=== PATIENT | male | born 1985 | race Caucasian/White ===

== ENCOUNTER 2023-12-15 17:21 | Inpatient (IN) | payer OTHER, SELFPAY ==
[2023-12-15] VITALS (9 sets, daily range): BP systolic 101–118; BP diastolic 45–62
--- NOTE | 2023-12-15 13:31 | ED.GENMED ---
History of Present Illness
General
Chief Complaint: Bowel Problem
Source: patient
Exam Limitations: none
Time Seen by Provider: 12/15/23 12:52
Nursing documentation reviewed up to this point in time: agreed with
History of Present Illness
History of Present Illness:
38-year-old male from local [facility] he has been on contraband watch no BM for 3 days, he is on Suboxone, gabapentin, he is on oral antibiotic for sutured laceration on his right forearm from [facility] wrist went through a plate glass window
about a week ago she requested the sutures be removed, he has no pain no nausea no vomiting ate lunch and breakfast today
He is hungry, requesting a lunch tray,
He denies any ingestion of contraband
Past History
Past History
ED Past Medical History: Other (Chronic pain)
Social History
Tobacco: Non-smoker
Alcohol: None
Drug: None
Living: [facility]
Employment: Not employed
Review of Systems
Review of Systems
All Other Systems: Not applicable
Constitutional: Denies fever
Respiratory: Reports no symptoms
Cardiac: Reports no symptoms
ABD/GI: Reports constipated; Denies abdominal pain or diarrhea
: Reports no symptoms
Phy Exam
Physical Exam
Physical Exam:
Physical Exam
General: no apparent distress, not acutely ill
Neck: No jaundice
Lungs: no acute respiratory distress.
Abdomen: Soft nontender
Neuro: alert and oriented. no focal neurological deficits
Skin: no rash
Psychiatric: cooperative
Extremities: Sutured wound on the right forearm no signs of infection
Course
Orders/Labs/Results
Orders:
Orders
12/15/23 12:42
Abdominal Series [CR Obstruct Series W/pa Chest] Urgent
Comment:
Reason For Exam: contipated
12/15/23 14:19
Magnesium Citrate [Citroma] 300 ml PO ONCE ONE
12/15/23 14:45
CT Abd/pel Without Iv Or Oral Urgent
Comment:
Reason For Exam: FB rectu
12/15/23 Dinner
Clear Liquid
At Your Request: Full Participation
12/15/23 16:01
ColoRectal Surgery Consult Routine
Consulting Provider: Jean-Claude Deutsch
Was physician already notified: Yes
12/15/23 16:11
Complete Blood Count/With Diff Urgent
Comprehensive Metabolic Panel Urgent
12/15/23 16:35
Admit/Transfer Patient As Directed
Co-Sign Provider:
Level of Care: Inpatient admission
Assign to:: Telemetry
Physician / Group: Henri Baires
Diagnosis: FB in rectum
Reason for Telemetry: Arrhythmia
Date to Stop Telemetry: 12/18/23
Time to Stop Telemetry: 11:00
Reason for Hospitalization: FB in rectum
Expected length of stay greater than two midnights?: Yes
ELOS- Estimated Length of Stay in days: 2
I certify the patient meets the requirements for IP care: Yes
12/15/23 16:36
Code Status As Directed
Resuscitation Status: Full Code
12/15/23 18:16
0.9% Sodium Chloride 1000 ml [Nss] 1,000 ml IV 75 mls/hr
Acetaminophen [Tylenol] 650 mg PO Q4HPRN PRN
Bisacodyl [Dulcolax] 10 mg RECTAL [id number] PRN
Docusate W/Senna [Senokot-S] 1 tablet PO BIDPRN PRN
Ketorolac [Toradol] 10 mg IV Q6HPRN PRN
Ondansetron Injectable [Zofran] 4 mg IV Q6HPRN PRN
Polyethylene Glycol Powder [Miralax] 17 grams PO DAILYPRN PRN
12/15/23 18:16
Activity As Directed
Activity Level: Bedside Commode
Pneumatic Compression Sleeves As Directed
Type: Knee high
Vital Signs As Directed
Frequency: Per unit guidelines
DX Deep Vein Thrombosis Video Routine
12/16/23 06:05
Basic Metabolic Panel IN AM
Complete Blood Count/No Diff IN AM
PTT IN AM
Prothrombin Time IN AM
12/18/23 11:00
DC Protocol for Telemetry ONCE
Abnormal Lab Results
12/15/23
16:11
RBC 4.55 L 10^6/uL
(4.70-6.10)
MPV 11.9 H fL
(7.4-10.4)
Absolute Neuts (auto) 7.5 H 10^3/uL
(1.4-6.5)
Neutrophils % 76.7 H %
(42.2-75.2)
Lymphocytes % 13.3 L %
(20.5-51.1)
Glucose 111 H mg/dl
(70-99)
12/15/23 16:11
12/15/23 16:11
Vital Signs
Initial and Last Documented VS:
Initial Vital Signs
Pulse Resp BP Pulse Ox
81 18 101/62 99
12/15/23 12:30 12/15/23 12:30 12/15/23 12:30 12/15/23 12:30
Last Documented Vital Signs
Temp Pulse Resp BP Pulse Ox
98.4 F 88 16 128/77 97
12/17/23 12:55 12/17/23 12:55 12/17/23 12:55 12/17/23 12:55 12/17/23 12:55
Procedures
Other
Indication for procedure:: Suture removal
Procedure completed by: Briana
Consent form signed: No
Additional Procedure:
Approximately 7 nonabsorbable sutures removed from a healed wound on the right wrist
MDM/Problems Addressed
Differential Diagnosis Includes:
Constipation, ingested contraband, medication effect from Suboxone
MDM/Problems Addressed:
No bowel movement for few
Chronic conditions affecting care:
Chronic pain
Acute Exacerbation and/or Progression of Chronic Illness:
Chronic pain
*Radiology
Radiology exam reviewed: preliminary read by ED provider
*Pulse Oximetry
Patient hypoxic: no
*Critical Care Note
Total Time (30-74mins, 75-104mins- exclusive of procedures): Not Applicable
Update Note
Update Note:
X-ray noted will start on a bowel regimen, patient tolerated lunch here without difficulty, sutures removed without difficulty no signs of infection or wound dehiscence
Update note from radiology concern for foreign body in the rectosigmoid will get a CT scan patient updated
ED Attending Note
-
Portions of this chart may have been created with voice recognition software.� Occasional wrong word or��sound alike� substitutions may have occurred due to the inherent limitations of voice recognition software.
Discharge Plan
Departure
Patient Disposition: Admit
Date of Disposition: 12/15/23
Time of Disposition: 16:10
Admit to: Med/Surg
Presentation/result/management discussed w/ accepting MD/DO: Hospitalist
Condition: Good
Discharge Problem:
Foreign body in anus and rectum, initial encounter
Interventions
Interventions:
*Risk Screen - Suicide Last Done: 12/15/23 13:31
*General Assessment Last Done: 12/15/23 13:31
*Neglect/Abuse Screening Last Done: 12/15/23 13:31
*ED COVID-19 Vaccine History Last Done: 12/15/23 13:31
*Nursing Disposition Last Done: 12/15/23 18:05
DA-Qrhpan-Saicenlabi Assessment Last Done: 12/15/23 13:31
Discharge Date and Time
Discharge Date/Time: 12/15/23 18:08
--- NOTE | 2023-12-15 16:26 | HPS.HSE ---
Family Physician
-
Family Physician: Facility [facility]
Chief Complaint
-
Foreign body in rectum
History of Present Illness
Patient is a 31-year-old male with past medical history of opioid use on Suboxone therapy was brought from local [facility] after having difficulty passing stool. Patient is poor historian and not forthcoming with much information. Apparently patient
was brought in by correction staff today for concern of contraband. Patient had an abdominal x-ray showing a foreign body in rectum and was confirmed on CT abdomen pelvis.
Patient stated of having a plastic tube? placed 48 hours before and containing meth. Again patient not forthcoming with information. Denies of currently having any abdominal pain nausea or vomiting.
Patient have history of opioid use and has been on Suboxone for 2 to 3 years, patient has been getting this for drug rehab.
No active cardiopulmonary complaints.
Medical History
Past Medical History
Past Medical History: Reports Other
Additional Past Medical History:
opioid use on Suboxone therapy
Past Surgical History: Reports Other
Social History
Tobacco: Smoker
Alcohol: Occasional
Drug: Narcotics
Living: Assisted
Family History
Family History: Not pertinent
Allergies / Home Medications
Allergies reflects when Allergies were last updated in [facility].
Home Medications with original date entered in [facility]
Allergy/Medication List:
Allergies
Allergy/AdvReac Type Severity Reaction Status Date / Time
No Known Allergies Allergy Verified 12/15/23 12:38
Review of Systems
-
A 12 point ROS was completed and negative except as noted: Yes
Physical Exam
Vital Signs
Vital Signs
Pulse Resp BP Pulse Ox
71 18 115/56 99
12/15/23 16:15 12/15/23 12:30 12/15/23 16:00 12/15/23 16:15
Physical Exam
General: Well Developed, Well Nourished and No Apparent Distress
HEENT: NormoCephalic, Moist mucous membranes and Atraumatic
Respiratory: Clear
Cardiac: S1/S2 and Regular Rhythm; No Murmur or Rub
GI: Soft, Non Tender, Non Distended and Normal Bowel Sounds; No Organomegaly
Rectal: Deferred by Provider
Musculoskeletal: No Clubbing, No Cyanosis and No Edema
Skin: No Rash
Neuro: Nonfocal/grossly intact
Data Reviewed
-
CT Scan: Image Personally Visualized and interpreted, Discussed with Patient and Discussed with Family
Impression/Plan
-
CT a/p
1. Air-filled foreign body within the distal sigmoid colon which may represent a tampon or other air-filled device.
2. No significant acute abnormality identified in the abdomen or pelvis, within the limits of unenhanced CT, as described above.
3. Moderate diffuse colonic stool burden may reflect constipation.

1. Foreign body in rectum
-Containing meth per patient
-CT abdomen pelvis report as above. Personally images reviewed and no intra foreign body material visualized in my opinion as well.
-Nonetheless monitor for any signs of meth toxicity
-Maintain patient on clear liquid diet
-maintain IV fluid
-Oral pain medication
-Colorectal surgery involved in care and will plan to take patient to the OR tomorrow
2. History of opioid use on Suboxone therapy
-As pharmacy to confirm dosing
DVT prophylaxis -SCD
Full code
Total time spent : 76 mins
I personally saw and examined the patient.
I have reviewed all diagnostic interpretations and treatment plans as written.
Time includes patient management by me, time spent at the patients bedside, time to review lab and imaging results, discussing patient care, documentation in the medical record, and time spent with the family or caregiver and discussing care plan
with RN/Consultants.
[2023-12-15 16:29] LABS: % Basophils 0.8 % (0-2); % Eosinophils 2.3 % (0-6); % Immature Granulocytes 0.4 % (0-0.5); % Lymphocytes 13.3 % (20.5-51.1); % Monocytes 6.5 % (1.7-9.3); % Neutrophils 76.7 % (42.2-75.2); Absolute Basophils 0.1 10^3/uL (0-0.2); Absolute Eosinophils 0.2 10^3/uL (0-0.7); Absolute Lymphocytes 1.3 10^3/uL (1.2-3.4); Absolute Monocytes 0.6 10^3/uL (0.1-0.6); Absolute Neutrophils 7.5 10^3/uL (1.4-6.5); Hematocrit 41.6 % (39.0-52.0); Hemoglobin 13.9 g/dL (13.0-18.0); Mean Corp Hgb Conc. 33.4 g/dL (33.0-37.0); Mean Corpuscular Hgb 30.5 pg (27.0-31.0); Mean Corpuscular Volume 91.4 fL (80.0-94.0); Mean Platelet Volume 11.9 fL (7.4-10.4); Nucleated Red Blood Cells % 0 % (-); Platelet Count 294 10^3/uL (130-400); Red Blood Cell Count 4.55 10^6/uL (4.70-6.10); Red Cell Dist. Width 12.8 % (11.5-14.5); White Blood Cell Count 9.8 10^3/uL (4.8-10.8)
[2023-12-15 16:57] LABS: ALT (SGPT) 21 U/L (0-50); AST (SGOT) 26 U/L (17-59); Albumin 3.9 g/dl (3.5-5.0); Alkaline Phosphatase 76 U/L (38-126); Blood Urea Nitrogen 19 mg/dl (9-20); Calcium 9.5 mg/dl (8.4-10.2); Carbon Dioxide 27 mmol/L (22-30); Chloride 103 mmol/L (98-107); Glucose 111 mg/dl (70-99); Potassium 4.6 mmol/L (3.5-5.1); Sodium 138 mmol/L (135-145); Total Bilirubin 0.3 mg/dl (0.2-1.3); Total Protein 6.7 g/dl (6.3-8.2); eGFR > 60.00
[2023-12-15] MEDS: NSS 1000 IV (18:38)
[2023-12-15] MEDS: SEROQUEL 50 MG PO (21:25)
[2023-12-16 02:44] VITALS: BP 112/55
[2023-12-16 07:00] VITALS: BP 113/68
[2023-12-16 07:00] LABS: Hematocrit 38.1 % (39.0-52.0); Mean Corp Hgb Conc. 34.1 g/dL (33.0-37.0); Mean Corpuscular Hgb 30.7 pg (27.0-31.0); Mean Corpuscular Volume 89.9 fL (80.0-94.0); Red Blood Cell Count 4.24 10^6/uL (4.70-6.10); Red Cell Dist. Width 12.7 % (11.5-14.5); White Blood Cell Count 7.7 10^3/uL (4.8-10.8)
[2023-12-16 07:04] LABS: INR 1.08; PT 13.9 Sec (11.4-14.6)
[2023-12-16 07:05] LABS: APTT 32.2 Sec (23.4-35.0)
[2023-12-16 07:23] LABS: Blood Urea Nitrogen 15 mg/dl (9-20); Calcium 9.4 mg/dl (8.4-10.2); Carbon Dioxide 24 mmol/L (22-30); Chloride 106 mmol/L (98-107); Glucose 83 mg/dl (70-99); Potassium 4.5 mmol/L (3.5-5.1); Sodium 139 mmol/L (135-145); eGFR > 60.00
[2023-12-16] MEDS: NSS 1000 IV ×2 (08:20→20:51)
--- NOTE | 2023-12-16 08:57 | CON.CRS ---
Addendum entered and electronically signed by Jean-Claude Deutsch MD 12/16/23 15:43:
I saw and examined the patient.
The AUTO PHONE INSTALLER's note was reviewed and I agree with the note.
Comment:
History, vitals, labs, imaging reviewed. Patient seen.
38 yo prisoner with rectal foreign body (?contains methamphetamines) at rectosigmoid junction area. Asymptomatic and stable. Abdomen soft and nontender. Discussed situation with patient. Full Golytely today to see if evacuates the RFB. If not,
npo after MN for trip to OR tomorrow for attempt to retrieve the RFB.
Original Note:
Medical History
-
Chief Complaint: Difficulty passing stool
History of Present Illness:
Mr Marx is a 38 yo incarcerated male with a h/o opioid abuse now on Suboxone who was brought in by penitentiary staff after complaints of being unable to pass stool with concern for rectal insertion of contraband. The patient is not forthcoming with the
details intially, but did reveal that a plastic container of meth was placed rectally about 48 hours prior to presentation. He denies abdominal pain. He denies nausea or vomiting. He is able to pass flatus but no passage of stool as of yet.
Social History
Tobacco: Former Smoker
Alcohol: None
Drug: Narcotics (on suboxone) and Other (?meth)
Living: Alf
Family History
Family History: Reviewed & Not Pertinent
Allergies / Home Medications
Allergy/AdvReac Type Severity Reaction Status Date / Time
No Known Allergies Allergy Verified 12/15/23 12:38
�Medication �Instructions �Recorded �Confirmed �Type
buprenorphine HCl 8 mg sublingual 16 mg sublingual DAILY 12/15/23 12/15/23 History
tablet
cephalexin 500 mg capsule 500 mg PO TID 12/15/23 12/15/23 History
clonazepam 1 mg tablet 1 mg PO .TAPER 12/15/23 12/15/23 History
clonidine HCl 0.1 mg tablet 0.1 mg PO .TAPER 12/15/23 12/15/23 History
diphenhydramine HCl 25 mg capsule 25 mg PO BID 12/15/23 12/15/23 History
loperamide 2 mg tablet 2 mg PO TIDPRN PRN diarrhea 12/15/23 12/15/23 History
(Anti-Diarrheal (loperamide))
mirtazapine 7.5 mg tablet 7.5 mg PO HS 12/15/23 12/15/23 History
ondansetron HCl 2 mg/mL 4 mg IM TIDPRN PRN nausea/vomiting 12/15/23 12/15/23 History
intravenous solution
ondansetron HCl 4 mg tablet 4 mg PO TIDPRN PRN nausea/vomiting 12/15/23 12/15/23 History
quetiapine 25 mg tablet 25 mg PO DAILY 12/15/23 12/15/23 History
quetiapine 50 mg tablet 50 mg PO HS 12/15/23 12/15/23 History
Review of Systems
-
A 10 point review of systems was completed, and was negative except as per HPI.
Physical Exam
Vital Signs
Temp 98.0 F 12/16/23 07:00
Pulse 60 12/16/23 07:00
Resp Rate 18 12/16/23 07:00
Blood pressure 113/68 12/16/23 07:00
SaO2 97 12/16/23 07:00
12/15/23 12/16/23 12/17/23
06:59 06:59 06:59
Actual Weight 75.5 kg
Lab Results / Allergies
12/16/23 06:05
12/16/23 06:05
WBC 7.7 10^3/uL (4.8-10.8) 12/16/23 06:05
Hgb 13.0 g/dL (13.0-18.0) 12/16/23 06:05
Hct 38.1 % (39.0-52.0) L 12/16/23 06:05
Plt Count 294 10^3/uL (130-400) 12/15/23 16:11
Abs Immat Gran (auto) 0.0 10^3/uL (0-0.05) 12/15/23 16:11
Neutrophils % 76.7 % (42.2-75.2) H 12/15/23 16:11
Allergy/AdvReac Type Severity Reaction Status Date / Time
No Known Allergies Allergy Verified 12/15/23 12:38
Physical Exam
General: No Apparent Distress
HEENT: Normocephalic
Respiratory: Non Labored Respirations
GI: Soft, Non Tender and Non Distended
Skin: Warm
Neuro: Awake, Alert and AO x 3
Psych: Calm
Assessment / Plan
-
38 yo incarcerated male with h/o opioid abuse on Suboxone presenting with retained rectal foreign body: reports plastic object possibly containing meth. He is without pain, but has not passed a BM for about [address] with an air-filled foreign body within the distal sigmoid colon and moderate stool burden. No evidence of perforation or complete obstruction.
AFVSS
No leukocytosis
Discussed OR intervention vs attempt to clear the object rectally with laxatives. As patient is stable and in no pain, will attempt to pass with bowel regimen/laxatives
--Clear liquid diet
--Bowel regimen: Golytely today x4L
--XR imaging in follow up
--If unable to pass retained object with bowel prep, plan removal in OR tomorrow with sigmoidoscopy in am
[2023-12-16] MEDS: SEROQUEL 25 MG PO (10:48)
[2023-12-16] MEDS: NULYTELY SOLUTION 4 LITERS PO (10:59)
[2023-12-16 11:00] VITALS: BP 130/51
--- NOTE | 2023-12-16 11:16 | W.PN.HOSP.TC ---
Today's Communication/Plan
-
for flex sig later today
resume home meds
Assessment / Plan
Assessment / Plan
CT a/p
1. Air-filled foreign body within the distal sigmoid colon which may represent a tampon or other air-filled device.
2. No significant acute abnormality identified in the abdomen or pelvis, within the limits of unenhanced CT, as described above.
3. Moderate diffuse colonic stool burden may reflect constipation.

1. Foreign body in rectum
-Containing meth per patient
-CT abdomen pelvis report as above. Personally images reviewed and no intra foreign body material visualized in my opinion as well.
-Nonetheless monitor for any signs of meth toxicity
-Maintain patient on clear liquid diet
-maintain IV fluid
-Oral pain medication
-Colorectal surgery evaluated and planning to take for flex sig if not able to pass FB with laxative.s
2. History of opioid use on Suboxone therapy
-Pharmacy confirmed with correction facility
-continue pre-admission buprenorphine 16mg/d
3. Psychiatric problems
-continue home dose of seroquel/remeron
DVT prophylaxis -SCD
Full code
Anticipated Discharge: Within 24 hours
Subjective/Interval History
-
Date of Service: December 16, 2023
not able to pass FB overnight
no abd pain/n/v overnight
no other issues
Objective Data
-
Labs:
Laboratory Results
12/16/23
06:05
WBC 7.7
Hgb 13.0
Hct 38.1 L
Plt Count
PT 13.9
INR 1.08
APTT 32.2
Sodium 139
Potassium 4.5
Chloride 106
Carbon Dioxide 24
BUN 15
Creatinine 0.7
Glucose 83
Calcium 9.4
Vital Signs:
Vital Signs
Temp Pulse Resp BP Pulse Ox
98.0 F 60 18 113/68 97
12/16/23 07:00 12/16/23 07:00 12/16/23 07:00 12/16/23 07:00 12/16/23 07:00
I&O
12/15/23 12/16/23 12/17/23
06:59 06:59 06:59
Intake Total 1939
Balance 1939
Review of Systems
-
Respiratory: Reports No Symptoms
Cardiac: Reports No Symptoms
Abdomen/GI: Reports No Symptoms
Physical Exam
-
General: No Apparent Distress and Comfortable
HEENT: Negative Oxygen
Respiratory: Clear to Auscultation
Cardiac: Regular Rhythm and S1/S2; Negative Murmur or Rub
GI: Soft, Nontender, Nondistended and Normal Bowel Sounds
Musculoskeletal: No Edema
Neuro: Awake, Alert, Oriented, No Motor Deficits and Nonfocal/Grossly Intact
Psych: Calm
[2023-12-16] MEDS: SUBUTEX 16 MG SL (12:01)
--- NOTE | 2023-12-16 14:13 | CM ---
Reviewed chart, patient from long-term. When ready for discharge, call [phone] for report to the [facility] Fax is [phone].
Plan: Case management will continue to follow and assist with discharge planning. Patient will go back to long-term.
[2023-12-16 15:00] VITALS: BP 121/61
--- NOTE | 2023-12-16 18:49 | PTCARENOTE ---
Pt was in the bathroom on bedside commode to have a bowel movement. Guards were presesnt, door was partially closed. Pt had a bowel movement in the bedside commode but the patient flushed the toilet. There were several hard stools and some loose,
there was a finger drew in the bottom of the bucket and a wipe on the side. There was no container present in the commode bucket. Informed patient that he needs to continue drinking the colyte since he did not pass the container yet.
[2023-12-16 19:25] VITALS: BP 133/66
[2023-12-16] MEDS: REMERON 7.5 MG PO (20:56)
[2023-12-16] MEDS: SEROQUEL 50 MG PO (20:56)
[2023-12-16 23:08] VITALS: BP 123/61
--- NOTE | 2023-12-17 02:44 | PTCARENOTE ---
Pt with large loose BM overnight in BSC, no signs of foreign body in stool. Pt offers no complaints.
Two [facility] guards at bedside, both verbalize understanding regarding pt's requirement to use BSC and not be left alone.
Call perez within reach.
[2023-12-17 03:44] VITALS: BP 118/62
[2023-12-17 07:00] VITALS: BP 115/64
[2023-12-17] MEDS: SUBUTEX 16 MG SL (08:31)
[2023-12-17] MEDS: SEROQUEL 25 MG PO (08:31)
--- NOTE | 2023-12-17 10:18 | W.PN.HOSP.TC ---
Today's Communication/Plan
-
await official abd xr read
possible d/c later today
Assessment / Plan
Assessment / Plan
CT a/p
1. Air-filled foreign body within the distal sigmoid colon which may represent a tampon or other air-filled device.
2. No significant acute abnormality identified in the abdomen or pelvis, within the limits of unenhanced CT, as described above.
3. Moderate diffuse colonic stool burden may reflect constipation.

1. Foreign body in rectum
-Containing meth per patient
-CT abdomen pelvis report as above. Personally images reviewed and no intra foreign body material visualized in my opinion as well.
-Colorectal surgery evaluated and planning to take for flex sig if not able to pass FB with laxative.
-Patient able to pass the FB yesterday with laxatives and flushed it presumably?
-Repeat Abd xr did not show any FB
-Starting on regular diet.
2. History of opioid use on Suboxone therapy
-Pharmacy confirmed with correction facility
-continue pre-admission buprenorphine 16mg/d
3. Psychiatric problems
-continue home dose of Seroquel/remeron
DVT prophylaxis -SCD
Full code
Anticipated Discharge: Today
Subjective/Interval History
-
Date of Service: December 17, 2023
denies any abd pain/n/v
having pain in left shoulder
no other issues
Objective Data
-
Vital Signs:
Vital Signs
Temp Pulse Resp BP Pulse Ox
97.9 F 51 16 115/64 98
12/17/23 07:00 12/17/23 07:00 12/17/23 07:00 12/17/23 07:00 12/17/23 07:00
I&O
12/16/23 12/17/23 12/18/23
06:59 06:59 06:59
Intake Total 1939 2880 / 2879
Output Total 1749
Balance 1939 1130 / 1130
Review of Systems
-
Respiratory: Reports No Symptoms
Cardiac: Reports No Symptoms
Abdomen/GI: Denies Abdominal Pain, Nausea or Vomiting
Physical Exam
-
General: No Apparent Distress and Comfortable
HEENT: Negative Oxygen
Respiratory: Clear to Auscultation
Cardiac: Regular Rhythm and S1/S2; Negative Murmur or Rub
GI: Soft, Nontender, Nondistended and Normal Bowel Sounds
Musculoskeletal: No Edema
Neuro: Awake, Alert, Oriented, No Motor Deficits and Nonfocal/Grossly Intact
Psych: Calm
--- NOTE | 2023-12-17 10:52 | CM ---
Reviewed chart, patient is medically cleared for discharge.
#For Report [phone] .
Plan: Case management will continue to follow and assist with discharge planning. Back to [facility].
[2023-12-17 11:00] VITALS: BP 111/53
--- NOTE | 2023-12-17 11:15 | W.PN.CRS1 ---
Today's Communication / Plan
-
dispo planning
Assessment/Plan
-
38 yo incarcerated male presenting for retained foreign body at rectosigmoid junction area. Tolerated golytely overnight with follow up imaging demonstrating clearance for foreign body.
--Regular diet
--Clear for d/c from surgical standpoint. No need for sigmoidoscopy.
Subjective Data
Subjective Data
Date of Service: December 17, 2023
Patient seen and examined at bedside. Passed lots of stool overnight. Denies pain. Denies n/v.
Objective Data
-
Vital Signs
Temp Pulse Resp BP Pulse Ox
97.9 F 51 16 115/64 98
12/17/23 07:00 12/17/23 07:00 12/17/23 07:00 12/17/23 07:00 12/17/23 07:00
Intake & Output
12/16/23 12/17/23 12/18/23
06:59 06:59 06:59
Intake Total 194 / 1940 2880 / 2880
Output Total 1750 / 1750
Balance 194 / 1940 1130 / 1130
Intake:
Oral fluids 1040 / 1040 2880 / 2880
IV fluids (Total) 900 / 900
Output:
Urine, Voided 1750 / 1750
Other:
Number of approximated MODERATE 3 4
amounts of urine
Lab Results
12/16/23 06:05
12/16/23 06:05
Physical Exam
-
General: No Acute Distress
Abdomen: Soft, Non Distended and Non Tender
Skin: Warm and Dry
[2023-12-17 12:55] VITALS: BP 128/77
--- NOTE | 2023-12-17 16:56 | W.DCSUMMARY ---
Discharge Summary
Discharge Data
Date of Admission: 12/15/23
Date of Discharge: 12/17/23
-
Pending Results: No
Hospital Course
Discharging Physician : Dr Henri Baires
Disposition : [facility]
Primary care physician : [facility] physician
Principal Discharge diagnosis :
Foreign body rectum
Chronic Discharge diagnosis :
History of opioid dependence on Suboxone therapy
History of psychiatric problem
Hospital Course :
Patient is a 38-year-old male with above-mentioned past medical history was brought into ER after patient was noted to be constipated with no bowel movement for 3 days. Patient was apparently on contraband watch and there was concern of regular
behavior from patient. In ER abdominal examination was benign. Patient underwent an abdominal x-ray which showed rectal foreign body. A follow-up CT chest was done which showed a tubular foreign body in rectum. Case was discussed with colorectal
surgeon who recommended conservative management with oral laxative therapy and monitoring in hospital. Plan was for patient to undergo flexible sigmoidoscopy with manual retrieval of the foreign body if patient unable to pass this. Patient was
able to pass foreign body although this was not able to be confirmed as reportedly patient flushed it. Repeat abdominal x-ray was done which showed foreign body not present in rectum. Patient was discharged to [facility] at
this point.
Important imaging findings :
None
Procedure findings :
None
Discharge Plan
-
Patient Disposition: Home (Routine Discharge)
Discharge Diagnosis/Procedures: FB in rectum
Condition: Fair
Diet: Regular
Activity: As tolerated
Driving Restrictions: No driving
Bathing Restrictions: OK to Shower
Referrals:
[facility],Facility [Family Provider] -
Prescriptions:
New
acetaminophen [Tylenol Extra Strength] 500 mg tablet
1,000 mg PO Q6H PRN (Reason: mild mod pain) Qty: 30 0RF
ibuprofen 600 mg tablet
600 mg PO Q8H Qty: 20 0RF
Continued
quetiapine 25 mg Tablet
25 mg PO DAILY
loperamide [Anti-Diarrheal (loperamide)] 2 mg Tablet
2 mg PO TIDPRN PRN (Reason: diarrhea)
buprenorphine HCl 8 mg Tablet, Sublingual
16 mg SUBLINGUAL DAILY
mirtazapine 7.5 mg Tablet
7.5 mg PO HS
quetiapine 50 mg Tablet
50 mg PO HS
Discontinued
clonidine HCl 0.1 mg Tablet
0.1 mg PO .TAPER
Patient Comments:
12/15/2023, 0.1 mg TID from 12/13/2023 - 12/16/2023; 0.1 mg BID from 12/17/2023 - 12/18/2023; 0.05 mg BID from 12/19/2023 - 12/20/2023.
ondansetron HCl 2 mg/mL Solution
4 mg IM TIDPRN PRN (Reason: nausea/vomiting)
ondansetron HCl 4 mg Tablet
4 mg PO TIDPRN PRN (Reason: nausea/vomiting)
clonazepam 1 mg Tablet
1 mg PO .TAPER
Patient Comments:
12/15/2023, 1 mg BID from 12/13/2023 - 12/15/2023; 0.5 mg BID from 12/16/2023 - 12/18/2023; 0.5 mg HS from 12/19/2023 - 12/21/2023.
cephalexin 500 mg Capsule
500 mg PO TID
Patient Comments:
12/15/2023, start date: 12/13/2023; end date: 12/19/2023.
diphenhydramine HCl 25 mg Capsule
25 mg PO BID
Discharge Orders:
Discharge Patient (As Directed); Ordered 12/17/23
Ordered By: Henri Baires
Discharge Date and Time
Discharge Date/Time: 12/17/23 12:52
Print Language: VIET[place]ESE
== END 2023-12-17 12:52 | disposition home or self-care (01) | DRG 394 ==
LOC: 3 WEST ACU 17:21
PROVIDERS: ADMITTING PHYSICIAN Hospitalist; CONSULT PHYSICIAN Surgery; EMERGENCY PHYSICIAN Emergency Medicine
DX: T18.5XXA Foreign body in anus and rectum, initial encounter (principal); F11.20 Opioid dependence, uncomplicated; K59.00 Constipation, unspecified; G89.29 Other chronic pain; W44.8XXA Other foreign body entering into or through a natural orifice, initial encounter; Y93.89 Activity, other specified; Y92.148 Other place in prison as the place of occurrence of the external cause; M25.512 Pain in left shoulder; F17.210 Nicotine dependence, cigarettes, uncomplicated
CPT/HCPCS: 74018; 74022; 74176; 80048; 80053; 85025; 85027; 85610; 85730; 87070; 99285